=== PATIENT | female | born 1940 | race Caucasian/White ===

== ENCOUNTER 2017-11-09 14:31 | Outpatient (CLI) | payer MEDICARE ==
--- NOTE | 2017-11-09 17:01 | ULT ---
RIGHT LOWER EXTREMITY VENOUS DOPPLER WITH SPECTRAL ANALYSIS AND COLOR FLOW EVALUATION: DATE: 11/09/17. HISTORY: Right lower extremity edema and pain. FINDINGS: Sorto scale, color flow, Doppler evaluation, and spectral analysis of the right lower extremity venous structures is performed with 3D imaging. The right lower extremity, common femoral, superficial fem oral, popliteal, posterior tibial, and most proximal greater saphenous and profunda femoral veins are imaged. There is decreased lumen compressibility and echogenic material is seen within the right lower extrem ity superficial femoral and popliteal veins with diminished flow, and findings are most consistent wi th near-occlusive thrombus involving the right lower extremity popliteal and superficial femoral vein s. There is normal lumen compressibility and flow visualized in the remaining visualized deep venous structures of the right lower extremity. IMPRESSION: 1. Near-occlusive thrombus in the right lower extremity superficial femoral and popliteal veins. 2. The above findings were discussed with Dr. Phillips on 11/09/17 at 1409 hours. CODE CR POS: ELOY
== END 2017-11-09 14:32 | disposition home or self-care (01) ==
LOC: ULT 14:31
PROVIDERS: ATTEND Internal Medicine
DX: I87.2 Venous insufficiency (chronic) (peripheral) (principal); R60.9 Edema, unspecified; I82.411 Acute embolism and thrombosis of right femoral vein; I82.431 Acute embolism and thrombosis of right popliteal vein

== ENCOUNTER 2018-09-15 20:30 | Outpatient (CLI) | payer MEDICARE | END 2018-09-15 20:31 | disposition home or self-care (01) | LOC: SLEEPLAB 20:30 | PROVIDERS: ATTEND Internal Medicine Pulmonary Disease | DX: G47.33 Obstructive sleep apnea (adult) (pediatric) (principal); G47.61 Periodic limb movement disorder | CPT/HCPCS: 95810 ==